=== PATIENT | male | born 1965 | race Caucasian/White ===

== ENCOUNTER 2021-12-16 07:54 | Day surgery (SDC) | payer MEDICAID ==
[~2021-12-16] VITALS: Ht 180.3 cm; Wt 88.5 kg
[2021-12-16] MEDS ORDERED: ONDANSETRON HCL 4 MG/2 ML VIAL ONE (10:59)
[2021-12-16] MEDS ORDERED: DIPHENHYDRAMINE INJ 50 MG/ML VIAL ONE (10:59)
[2021-12-16] MEDS ORDERED: fentaNYL CITRATE/PF 100 MCG/2 ML AMP ONE (10:59)
[2021-12-16] MEDS: MIDAZOLAM HCL 5 MG/5 ML VIAL ONE ×2 (11:40→11:43)
[2021-12-16 15:13] VITALS: BP_SYST 121
== END 2021-12-16 12:35 | disposition home or self-care (01) ==
LOC: SDS 07:54 → SMU 08:05 → SDS 12:35
PROVIDERS: ATTEND Internal Medicine
DX: M51.16 Intervertebral disc disorders with radiculopathy, lumbar region (principal); M47.22 Other spondylosis with radiculopathy, cervical region; M79.10 Myalgia, unspecified site; E11.9 Type 2 diabetes mellitus without complications; E78.5 Hyperlipidemia, unspecified; Z20.822 Contact with and (suspected) exposure to COVID-19; Z79.899 Other long term (current) drug therapy
CPT/HCPCS: 87426; 36415; 62323; 82962; J1200; J2250; J2405; J3010; 76000

== ENCOUNTER 2022-03-17 08:30 | Day surgery (SDC) | payer MEDICAID ==
[~2022-03-17] VITALS: Ht 180.3 cm; Wt 88.5 kg
[2022-03-17] MEDS ORDERED: DIPHENHYDRAMINE INJ 50 MG/ML VIAL ONE (11:50)
[2022-03-17] MEDS ORDERED: MIDAZOLAM HCL 2 MG/2 ML VIAL (VERSED) ONE (11:51)
[2022-03-17] MEDS ORDERED: fentaNYL CITRATE/PF 100 MCG/2 ML AMP ONE (11:52)
[2022-03-17] MEDS ORDERED: NORMAL SALINE 10 ML VIAL ONE (12:00)
[2022-03-17] MEDS ORDERED: LIDOCAINE 2%, 20 ML MDV ONE (12:00)
[2022-03-17] MEDS ORDERED: ISOVUE-300 (IOPAMIDOL) 100 ML INFUS..BTL IV ONE (12:00)
[2022-03-17] MEDS ORDERED: DEXAMETHASONE SOD PHOSPHATE 4 MG/ML VIAL ONE (12:00)
[2022-03-17 15:42] VITALS: BP_SYST 100
== END 2022-03-17 13:25 | disposition home or self-care (01) ==
LOC: SDS 08:30 → SMU 08:31 → SDS 13:25
PROVIDERS: ATTEND Internal Medicine
DX: M51.16 Intervertebral disc disorders with radiculopathy, lumbar region (principal); Z20.822 Contact with and (suspected) exposure to COVID-19
CPT/HCPCS: 87426; 36415; 64483; 64484; 82962; J1100; J1200; J2001; J3465; J3010; Q9967; 76000

== ENCOUNTER 2023-02-16 07:32 | Day surgery (SDC) | payer MEDICAID ==
[~2023-02-16] VITALS: Ht 180.3 cm; Wt 86.2 kg
[2023-02-16] MEDS ORDERED: ONDANSETRON HCL 4 MG/2 ML VIAL ONE (08:28)
[2023-02-16] MEDS ORDERED: fentaNYL CITRATE/PF 100 MCG/2 ML AMP ONE (08:28)
[2023-02-16] MEDS ORDERED: DIPHENHYDRAMINE INJ 50 MG/ML VIAL ONE ×2 (08:28→09:22)
[2023-02-16 10:00] VITALS: O2SAT 97
[2023-02-16] MEDS: MIDAZOLAM HCL 5 MG/5 ML VIAL ONE (11:04)
[2023-02-16 12:58] VITALS: BP_SYST 115; PULSE 73; RESP 16; TEMP 98.6
[2023-02-18] MEDS: MIDAZOLAM HCL 5 MG/5 ML VIAL ONE (11:06)
== END 2023-02-16 12:05 | disposition home or self-care (01) ==
LOC: SDS 07:32 → SMU 07:34 → SDS 12:05
PROVIDERS: ATTEND Internal Medicine
DX: M50.90 Cervical disc disorder, unspecified, unspecified cervical region (principal); M54.12 Radiculopathy, cervical region; R07.89 Other chest pain; E11.9 Type 2 diabetes mellitus without complications; E78.5 Hyperlipidemia, unspecified; Z79.899 Other long term (current) drug therapy
CPT/HCPCS: 62321; 82962; J1200; J2250; J3010; 76000; J2405

== ENCOUNTER 2023-06-08 07:24 | Day surgery (SDC) | payer MEDICAID ==
[~2023-06-08] VITALS: Ht 180.3 cm; Wt 90.7 kg
[2023-06-08] MEDS ORDERED: LIDOCAINE 2%, 20 ML MDV ONE (10:00)
[2023-06-08] MEDS ORDERED: NORMAL SALINE 10 ML VIAL ONE (10:00)
[2023-06-08] MEDS ORDERED: iopamidoL 50 ML VIAL IV ONE (10:00)
[2023-06-08] MEDS ORDERED: methylPREDNISolone ACETATE 40 MG/ML ONE (10:00)
[2023-06-08] MEDS: ONDANSETRON HCL 4 MG/2 ML VIAL ONE (11:16)
[2023-06-08] MEDS ORDERED: ONDANSETRON HCL 4 MG/2 ML VIAL IVP ONE (11:30)
[2023-06-08] MEDS: MIDAZOLAM HCL 5 MG/5 ML VIAL ONE (11:37)
[2023-06-08] MEDS: fentaNYL CITRATE/PF 100 MCG/2 ML AMP ONE (11:38)
[2023-06-08 12:03] VITALS: O2SAT 97
[2023-06-08 13:59] VITALS: BP_SYST 123; PULSE 75; RESP 17
== END 2023-06-08 12:25 | disposition home or self-care (01) ==
LOC: SDS 07:24 → SMU 07:25 → SDS 12:25
PROVIDERS: ATTEND Internal Medicine
DX: M50.10 Cervical disc disorder with radiculopathy, unspecified cervical region (principal); M47.22 Other spondylosis with radiculopathy, cervical region; E11.9 Type 2 diabetes mellitus without complications; E78.5 Hyperlipidemia, unspecified; M79.10 Myalgia, unspecified site; Z98.890 Other specified postprocedural states; Z79.899 Other long term (current) drug therapy
CPT/HCPCS: 62321; 82948; J1030; J2250; J2405; J3010; Q9967; 76000; J2001

== ENCOUNTER 2023-07-06 09:30 | Day surgery (SDC) | payer MEDICAID ==
[~2023-07-06] VITALS: Ht 180.3 cm; Wt 90.7 kg
[2023-07-06] MEDS ORDERED: LIDOCAINE MPF 2% 20 MG/1 ML, 5 ML VIAL INH ONE (10:00)
[2023-07-06 12:38] VITALS: O2SAT 97
[2023-07-06] MEDS ORDERED: fentaNYL CITRATE/PF 100 MCG/2 ML AMP ONE (13:26)
[2023-07-06] MEDS ORDERED: DIPHENHYDRAMINE INJ 50 MG/ML VIAL ONE (13:26)
[2023-07-06] MEDS ORDERED: MIDAZOLAM HCL 5 MG/5 ML VIAL ONE (13:27)
[2023-07-06] MEDS: fentaNYL CITRATE/PF 100 MCG/2 ML AMP IVP ONE (13:46)
[2023-07-06 17:49] VITALS: BP_SYST 118; PULSE 67; RESP 17
== END 2023-07-06 14:46 | disposition home or self-care (01) ==
LOC: SDS 09:30 → SMU 09:32 → SDS 14:46
PROVIDERS: ATTEND Internal Medicine
DX: S23.9XXA Sprain of unspecified parts of thorax, initial encounter (principal); M51.16 Intervertebral disc disorders with radiculopathy, lumbar region; M50.122 Cervical disc disorder at C5-C6 level with radiculopathy; M47.22 Other spondylosis with radiculopathy, cervical region; M43.16 Spondylolisthesis, lumbar region; M48.02 Spinal stenosis, cervical region; M48.07 Spinal stenosis, lumbosacral region; E11.9 Type 2 diabetes mellitus without complications; E78.5 Hyperlipidemia, unspecified; Z98.890 Other specified postprocedural states; Z79.84 Long term (current) use of oral hypoglycemic drugs; Z79.899 Other long term (current) drug therapy; X58.XXXA Exposure to other specified factors, initial encounter; Y93.89 Activity, other specified; Y92.89 Other specified places as the place of occurrence of the external cause; Y99.8 Other external cause status
CPT/HCPCS: 62321; 82948; J2250; J3010; Q9967; J1010; 76000; J1030; J1200